=== PATIENT | male | born 1995 | race Two or more races ===

== ENCOUNTER 2025-01-01 14:21 | Outpatient (CLI) | payer OTHER ==
[2025-01-01 15:25] LABS: Hepatitis B Surface Antigen Negative (Negative)
== END 2025-01-01 17:00 | disposition home or self-care (01) ==
LOC: LAB 14:21
PROVIDERS: ATTEND Family Medicine
DX: S61.233A Puncture wound without foreign body of left middle finger without damage to nail, initial encounter (principal); Z20.6 Contact with and (suspected) exposure to human immunodeficiency virus [HIV]; Z77.21 Contact with and (suspected) exposure to potentially hazardous body fluids; X58.XXXA Exposure to other specified factors, initial encounter; Y93.89 Activity, other specified; Y92.89 Other specified places as the place of occurrence of the external cause; Y99.8 Other external cause status
CPT/HCPCS: 36415; 86703; 86706; 86803; 87340

== ENCOUNTER 2025-02-12 15:39 | Outpatient (CLI) | payer OTHER | END 2025-02-12 17:00 | disposition home or self-care (01) | LOC: LAB 15:39 | PROVIDERS: ATTEND Family Medicine | DX: S61.233A Puncture wound without foreign body of left middle finger without damage to nail, initial encounter (principal); W46.1XXA Contact with contaminated hypodermic needle, initial encounter; Y93.89 Activity, other specified; Y92.89 Other specified places as the place of occurrence of the external cause; Y99.8 Other external cause status; Z20.1 Contact with and (suspected) exposure to tuberculosis | CPT/HCPCS: 36415; 86703; 86706; 86803; 87340 ==

== ENCOUNTER → 2025-03-19 | Outpatient (CLI) | payer OTHER | END | disposition home or self-care (01) | LOC: LAB 15:49 | PROVIDERS: ATTEND Family Medicine | DX: S81.832D Puncture wound without foreign body, left lower leg, subsequent encounter (principal); W46.0XXD Contact with hypodermic needle, subsequent encounter | CPT/HCPCS: 86703 ==